=== PATIENT | female | born 1985 | race Caucasian/White ===

== ENCOUNTER 2016-11-01 15:50 | Inpatient (IN) | payer OTHER ==
[~2016-11-01] VITALS: Ht 160 cm; Wt 83.9 kg
[2016-11-01 17:26] LABS: HEMOGLOBIN 13.9 gm/dl (12.3-15.3); RED BLOOD COUNT 4.35 M/UL (4.00-5.10); WHITE BLOOD COUNT 11.9 K/UL (4.5-11.0)
[2016-11-03 03:19] LABS: HEMOGLOBIN 12.3 gm/dl (12.3-15.3)
[2016-11-04] MEDS ORDERED: COLACE 100MG C100 MG PO (11:00)
== END 2016-11-04 11:04 | disposition home or self-care (01) | DRG 765 ==
LOC: GENOP 15:50 → OB 11-02 06:27
PROVIDERS: ADMIT Obstetrics & Gynecology
PROC: 10D00Z1 Extraction of Products of Conception, Low, Open Approach (ICD-10-PCS; principal; 2016-11-02 10:20)
DX: O34.211 Maternal care for low transverse scar from previous cesarean delivery (principal); O99.324 Drug use complicating childbirth; O36.5930 Maternal care for other known or suspected poor fetal growth, third trimester, not applicable or unspecified; Z3A.37 37 weeks gestation of pregnancy; Z37.0 Single live birth
CPT/HCPCS: 36415; 80307; 81001; 82800; 85014; 85018; 85025; 90715; C9113; J0690; J2274; J2405; J2590; J2765; J3010; J7120